=== PATIENT | male | born 1985 | race Two or more races ===

== ENCOUNTER 2025-06-17 06:50 | Day surgery (SDC) | payer OTHER, SELFPAY ==
--- NOTE | 2025-06-13 12:22 | EKG_ITS ---
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
[2025-06-13 14:33] LABS: Anion Gap 9 (7-16); BUN/Creatinine Ratio 6 Ratio (12-20); Blood Urea Nitrogen 6 mg/dL (9-23); Calcium 10.1 mg/dL (8.3-10.6); Carbon Dioxide 27.0 mMol/L (20.0-31.0); Chloride 106 mMol/L (98-107); Creatinine (Component) 1.0 mg/dL (0.6-1.3); Glucose 90 mg/dL (74-106); Osmolality,Calculated 280 (275-295); Potassium 4.3 mMol/L (3.4-5.1); Sodium 142 mMol/L (136-145); eGFR > 60 See Note
[2025-06-14 10:51] VITALS: BMI 51.2
[2025-06-17] VITALS (7 sets, daily range): BP systolic 101–166; BP diastolic 66–91; PULSE 59–77; RESP 16–20; TEMP 36.3–36.6; O2SAT 97–100; BMI 50.9
--- NOTE | 2025-06-17 07:35 | SUR.PREOP ---
Patient expressed gratitude for prayer before their procedure.
[2025-06-17] MEDS: RINGERS LACTATED 1000 ML 500 ML 20 ML IV (08:30)
--- NOTE | 2025-06-17 09:09 | SUR.PHASEII ---
pt received from OR in recovery bay 7. pt asleep but responds to voice, breathing unlabored on 3l nc. v/s stable. report received from Olvin ELLIS and Beverley SMITH.
--- NOTE | 2025-06-17 09:57 | SUR.PHASEII ---
pt awake and alert, breathing unlabored on room air. v/s stable. pt able to ambulate to wheelchair with steady gait. d/c instructions given with s/o Aki in room, all questions answered. pt d/c via wheelchair with all belongings.
== END 2025-06-17 09:57 | disposition home or self-care (01) ==
PROVIDERS: Anesthesiology; PCP Family Medicine; Referring Provider Specialist; Visit Provider Specialist
PROC: 0DJD8ZZ Inspection of Lower Intestinal Tract, Via Natural or Artificial Opening Endoscopic (ICD-10-PCS; CPT 45378; principal; 2025-06-17 07:45)
PROC: (CPT 43239; 2025-06-17 07:45)
DX: D12.8 Benign neoplasm of rectum (principal); K52.9 Noninfective gastroenteritis and colitis, unspecified; K64.9 Unspecified hemorrhoids; K62.89 Other specified diseases of anus and rectum; K57.30 Diverticulosis of large intestine without perforation or abscess without bleeding; K63.89 Other specified diseases of intestine; Z01.810 Encounter for preprocedural cardiovascular examination; K29.50 Unspecified chronic gastritis without bleeding; K20.90 Esophagitis, unspecified without bleeding; K31.89 Other diseases of stomach and duodenum
CPT/HCPCS: 45385; 45380; 43239; 36415; 80048; 93005; A4649; J7120; A9270